=== PATIENT | female | born 1945 | race Caucasian/White ===

== ENCOUNTER 2023-11-05 06:07 | Day surgery (SDC) | payer OTHER ==
[~2023-11-05] VITALS: Ht 154.9 cm; Wt 97.5 kg
[2023-11-05 11:15] VITALS: BP_SYST 147; PULSE 83; RESP 20; TEMP 97.3; O2SAT 93
== END 2023-11-05 07:12 | disposition home or self-care (01) ==
LOC: SDS 06:07 → SMU 06:13 → SDS 07:12
PROVIDERS: ATTEND Otolaryngology
DX: H65.492 Other chronic nonsuppurative otitis media, left ear (principal); Z96.22 Myringotomy tube(s) status; Z88.0 Allergy status to penicillin; Z88.8 Allergy status to other drugs, medicaments and biological substances; Z53.8 Procedure and treatment not carried out for other reasons
CPT/HCPCS: 87081

== ENCOUNTER 2023-12-05 10:12 | Day surgery (SDC) | payer OTHER ==
[2023-12-05] MEDS ORDERED: PROPOFOL 200MG/ 20ML VIAL (DIPRIVAN) IV ONE (11:46)
[2023-12-05] MEDS ORDERED: SEVOFLURANE 15 MIN GAS INH ONE (11:46)
[2023-12-05] MEDS ORDERED: ONDANSETRON HCL 4 MG/2 ML VIAL ONE (11:46)
[2023-12-05] MEDS ORDERED: LR 1,000 ML IV.SOLN IV ONE (11:46)
[2023-12-05] MEDS ORDERED: IBUPROFEN 600 MG TABLET PO ONE (12:30)
[2023-12-05] MEDS ORDERED: ONDANSETRON HCL 4 MG/2 ML VIAL IVP PRN (12:30)
[2023-12-05] MEDS ORDERED: KETOROLAC TROMETHAMINE 30 MG VIAL IVP PRN (12:30)
[2023-12-05] MEDS ORDERED: METOCLOPRAMIDE HCL 10 MG/2 ML VIAL IVP PRN (12:30)
[2023-12-05 14:57] VITALS: O2SAT 96
[2023-12-05 15:53] VITALS: BP_SYST 130; RESP 20
== END 2023-12-05 15:25 | disposition home or self-care (01) ==
LOC: SDS 10:12 → SMU 10:14 → SDS 15:25
PROVIDERS: ATTEND Otolaryngology
DX: H65.492 Other chronic nonsuppurative otitis media, left ear (principal); I10 Essential (primary) hypertension; E11.9 Type 2 diabetes mellitus without complications; E66.01 Morbid (severe) obesity due to excess calories; E78.00 Pure hypercholesterolemia, unspecified; F41.9 Anxiety disorder, unspecified; Z90.710 Acquired absence of both cervix and uterus; Z96.22 Myringotomy tube(s) status; Z90.89 Acquired absence of other organs; Z98.890 Other specified postprocedural states; Z88.0 Allergy status to penicillin; Z88.1 Allergy status to other antibiotic agents; Z88.5 Allergy status to narcotic agent; Z79.899 Other long term (current) drug therapy; Z68.41 Body mass index [BMI] 40.0-44.9, adult
CPT/HCPCS: 69436; 82962; J2405; J2704; J7120